=== PATIENT | female | born 1995 | race African-American/Black ===

== ENCOUNTER 2017-02-21 18:40 | Emergency (ER) | payer SELFPAY ==
[2017-02-21] MEDS ORDERED: NO HOME MEDICATION (19:14)
[2017-02-21] MEDS ORDERED: NORCO 10-325 T1 EACH PO (19:52)
[2017-02-21] MEDS ORDERED: BACTRIM DS TAB1 EAC2 PO (19:52)
[2017-06-23] MEDS ORDERED: BIRTH CONTROL (02:08)
[2017-06-23] MEDS ORDERED: PERCOCET 5-3251 EACH PO (04:09)
== END 2017-02-21 19:57 ==
LOC: EDMED 18:40
PROC: 0H9CXZZ Drainage of Left Upper Arm Skin, External Approach (ICD-10-PCS; principal; 2017-02-21)
PROC: 0H9BXZZ Drainage of Right Upper Arm Skin, External Approach (ICD-10-PCS; 2017-02-21)
DX: L02.412 Cutaneous abscess of left axilla (principal); L02.411 Cutaneous abscess of right axilla